=== PATIENT | male | born 1940 | race Two or more races ===

== ENCOUNTER 2017-08-01 11:35 | Outpatient (CLI) | payer OTHER | END 2017-08-01 11:47 | disposition home or self-care (01) | LOC: RAD 501 11:35 | DX: J06.9 Acute upper respiratory infection, unspecified (principal) ==

== ENCOUNTER 2019-11-04 08:41 | Outpatient (CLI) | payer OTHER | END 2019-11-04 08:50 | disposition home or self-care (01) | LOC: NUCLEAR 08:41 | PROVIDERS: ATTEND General Practice | DX: M79.89 Other specified soft tissue disorders (principal); R23.0 Cyanosis; I73.9 Peripheral vascular disease, unspecified ==

== ENCOUNTER 2019-11-05 07:04 | Outpatient (CLI) | payer OTHER | END 2019-11-05 07:18 | disposition home or self-care (01) | LOC: NUCLEAR 07:04 | PROVIDERS: ATTEND General Practice | DX: M79.89 Other specified soft tissue disorders (principal); R23.0 Cyanosis; I87.2 Venous insufficiency (chronic) (peripheral) ==